=== PATIENT | male | born 1945 | race Caucasian/White ===

== ENCOUNTER 2020-06-21 09:55 | Observation (INO) | payer MEDICARE, BC ==
[~2020-06-21] VITALS: Ht 172.7 cm; Wt 71.2 kg
[2020-06-21] MEDS ORDERED: MIDAZOLAM 1 MG/ML, 5ML ONE (10:05)
[2020-06-21] MEDS ORDERED: LIDOCAINE 2%, 20ML ONE (10:05)
[2020-06-21] MEDS ORDERED: FENTANYL PF 250 MCG/5ML ONE (10:05)
[2020-06-21] MEDS ORDERED: EMPA25TA PO (10:16)
[2020-06-21] MEDS ORDERED: FINA5TAB4 PO (10:16)
[2020-06-21] MEDS ORDERED: ROSU20TA2 PO (10:16)
[2020-06-21] MEDS ORDERED: [UNRECOGNIZED DRUG - CODE] PO (10:16)
[2020-06-21 10:22] VITALS: BP 158/89
[2020-06-21] MEDS ORDERED: CEFAZOLIN PMX 1GM/50ML 50 ML ONE (10:26)
[2020-06-21] MEDS ORDERED: CEFAZOLIN 1,000 MG ONE (10:26)
[2020-06-21] MEDS ORDERED: CEFAZOLIN PMX 1GM/50ML 50 ML IVPB ONE (10:30)
[2020-06-21] MEDS ORDERED: SODIUM CHLORIDE 0.9% 1,000 ML IV SCH (10:30)
[2020-06-21 10:52] LABS: BASOPHILS % (AUTO) 1 % (0-1); EOSINOPHILS % (AUTO) 1 % (1-7); LYMPHOCYTES % (AUTO) 19 % (22-44); MD NO; MEAN CORPUSCULAR HEMOGLOBIN 31.4 pg (27.5-34.5); MEAN CORPUSCULAR HGB CONC 34.4 g/dL (33.2-36.2); MEAN PLATELET VOLUME 8.7 fL (7.4-10.4); MONOCYTES % (AUTO) 7 % (2-9); NEUTROPHILS % (AUTO) 72 % (42-75); PLATELET COUNT 251 x10^3/uL (130-400); RED BLOOD COUNT 5.23 x10^6/uL (4.38-5.82); RED CELL DISTRIBUTION WIDTH 13.2 % (9.4-14.8)
[2020-06-21 11:03] LABS: ANION GAP 8 mmol/L (5-15); CALCIUM 8.9 mg/dL (8.5-10.1); CHLORIDE 106 mmol/L (98-107); CREATININE 1.37 mg/dL (0.7-1.3)
[2020-06-21] MEDS ORDERED: LIDOCAINE 1%, 20ML ONE (11:44)
[2020-06-21] MEDS ORDERED: ONDANSETRON 2MG/ML, 2ML IV PRN (12:30)
[2020-06-21] MEDS ORDERED: HOLD MEDICATION MC PRN (12:30)
[2020-06-21] MEDS ORDERED: PHARMACY INSTRUCTION MC PRN (12:30)
[2020-06-21] MEDS ORDERED: ACETAMINOPHEN 325 MG TABLET PO PRN (12:30)
[2020-06-21 13:03] VITALS: BP 138/76
[2020-06-21 14:29] VITALS: BP 138/76
[2020-06-21] MEDS: CEFAZOLIN PMX 1GM/50ML 50 ML IVPB SCH (20:09)
[2020-06-21] MEDS: SODIUM CHLORIDE FLUSH 10ML SYR IVF SCH (20:10)
[2020-06-21] MEDS ORDERED: ATORVASTATIN 80 MG TABLET PO SCH (21:00)
[2020-06-21] MEDS ORDERED: ZOLPIDEM 5MG TABLET PO PRN (21:00)
[2020-06-21] MEDS ORDERED: IMIPRAMINE 10 MG TABLET PO SCH (21:00)
[2020-06-21 22:43] VITALS: BP 123/66
[2020-06-22 02:00] VITALS: BP 131/88
[2020-06-22] MEDS: CEFAZOLIN PMX 1GM/50ML 50 ML IVPB SCH (04:03)
[2020-06-22 07:03] VITALS: BP 137/82
[2020-06-22] MEDS ORDERED: ACET325T26 PO (08:25)
[2020-06-22] MEDS ORDERED: LINAGLIPTIN 5 MG TAB PO SCH (09:00)
[2020-06-22] MEDS ORDERED: FINASTERIDE 5 MG TABLET PO SCH (09:00)
[2020-06-22] MEDS: SODIUM CHLORIDE FLUSH 10ML SYR IVF SCH (09:00)
== END 2020-06-22 11:00 | disposition home or self-care (01) ==
LOC: CACL 09:55 → 5SO 12:09 → DCLOUNGE 06-22 10:55
PROVIDERS: ADMIT Internal Medicine Cardiovascular Disease; ATTEND Internal Medicine Cardiovascular Disease
DX: I44.1 Atrioventricular block, second degree (principal); I45.2 Bifascicular block; I10 Essential (primary) hypertension; E11.9 Type 2 diabetes mellitus without complications; F19.90 Other psychoactive substance use, unspecified, uncomplicated; Z79.899 Other long term (current) drug therapy
CPT/HCPCS: 33208; 36415; 71045; 71046; 80048; 85025; 96365; 96366; 99156; 99157; C1779; C1785; C1892; G0378; J0690; J2250; J3010; J3490

== ENCOUNTER 2020-12-22 12:27 | Emergency (ER) | payer MEDICARE, BC ==
[~2020-12-22] VITALS: Ht 172.7 cm; Wt 73.0 kg
[~2020-12-22 12:27] MED LIST: ACET325T26 PO; EMPA25TA PO; FINA5TAB4 PO; ROSU20TA2 PO; [UNRECOGNIZED DRUG - CODE] PO
--- NOTE | 2020-12-22 12:47 | NUR ---
EKG DONE IN TRIAGE.
[2020-12-22 13:21] LABS: BASOPHILS % (AUTO) 1 % (0-1); EOSINOPHILS % (AUTO) 2 % (1-7); LYMPHOCYTES % (AUTO) 21 % (22-44); MEAN CORPUSCULAR HGB CONC 33.9 g/dL (33.2-36.2); MEAN PLATELET VOLUME 8.8 fL (7.4-10.4); MONOCYTES % (AUTO) 8 % (2-9); NEUTROPHILS % (AUTO) 69 % (42-75); PLATELET COUNT 283 x10^3/uL (130-400); RED BLOOD COUNT 5.25 x10^6/uL (4.38-5.82); RED CELL DISTRIBUTION WIDTH 13.3 % (9.4-14.8)
[2020-12-22 13:34] LABS: ANION GAP 8 mmol/L (5-15); CALCIUM 8.9 mg/dL (8.5-10.1); CHLORIDE 106 mmol/L (98-107)
[2020-12-22 13:41] LABS: ALANINE AMINOTRANSFERASE 24 U/L (12-78); ALKALINE PHOSPHATASE 113 U/L (45-117); BILIRUBIN,TOTAL 0.4 mg/dL (0.2-1.0); CREATININE 1.35 mg/dL (0.7-1.3); TOTAL PROTEIN 7.7 g/dL (6.4-8.2); TROPONIN I < 0.015 ng/mL (0.000-0.045)
--- NOTE | 2020-12-22 13:53 | NUR ---
PT AMBULATORY FROM LOBBY TO ROOM 34.
--- NOTE | 2020-12-22 14:49 | NUR ---
REPORT FROM JESSIE LAKE. ASSUMING CARE AT THIS TIME. ERMD AT BEDSIDE FOR ASSESSMENT. NURSERYMAN ASSISTANT AT BEDSIDE FOR REPEAT EKG.
--- NOTE | 2020-12-22 14:51 | NUR ---
TP RN: RHYTHM CHANGE OBSERVED ON MONITOR, STAT EKG ORDERED. JOI DEMPSEY AT BEDSIDE. AT BEDSIDE.
--- NOTE | 2020-12-22 14:54 | NUR ---
TP RN: [email or web address] CONTACTED TO INTERROGATE PACEMAKER. WILL CALL BACK W/ ETA.
--- NOTE | 2020-12-22 15:06 | NUR ---
PT RESTING COMFORTABLY ON GURNEY. AT BEDSIDE. PT CONNECTED TO ALL MONITORING. CALL LIGHT IN REACH.
--- NOTE | 2020-12-22 15:06 | NUR ---
TP RN: TELEPHONE CALL FROM [employer]. STATES PTS PACEMAKER SET TO GO UP TO 120BPM. WILL FAX OVER REPORT.
--- NOTE | 2020-12-22 15:23 | NUR ---
MACEY RN: KAILYNRONIManuel REP GEOVANNI TO BE HERE IN 45 MINUTES.
--- NOTE | 2020-12-22 15:30 | NUR ---
PT AMBULATED TO RESTROOM WITH STEADY GAIT.
--- NOTE | 2020-12-22 16:38 | NUR ---
[employer] REP AT BEDSIDE TO INTERRIGATE PACEMAKER.
[2020-12-22 17:02] VITALS: BP 129/78
--- NOTE | 2020-12-22 17:03 | NUR ---
INTERROGATION COMPLETE. ERMD AT BEDSIDE TO UPDATE PT ON POC.
== END 2020-12-22 17:54 | disposition home or self-care (01) ==
LOC: ED 17:38
DX: R06.00 Dyspnea, unspecified (principal); I49.9 Cardiac arrhythmia, unspecified; R06.02 Shortness of breath; I45.19 Other right bundle-branch block; I10 Essential (primary) hypertension; E11.9 Type 2 diabetes mellitus without complications
CPT/HCPCS: 36415; 71045; 80053; 83880; 84484; 85025; 93005; 99285